=== PATIENT | male | born 1965 | race Caucasian/White ===

== ENCOUNTER 2018-12-29 06:09 | Emergency (ER) | payer SELFPAY ==
[2018-12-29] MEDS ORDERED: IPRATROPIUM/ALBUTEROL 0.5-2.5 MG/3 ML AMPUL NEB ONE (07:19)
--- NOTE | 2018-12-29 07:59 | RADIOLOGY REPORT (SQ) ---
EXAM DESCRIPTION: XR CHEST 2 VIEWS COMPLETED DATE/TME: 12/29/2018 07:19 CLINICAL HISTORY: sob COMPARISON: 12/03/2014 FINDINGS: Frontal and lateral views of the chest. Tortuosity of thoracic aorta. Heart is not enlarged. No consolidation, pneumothorax, or pleural effusion. No acute osseous abnormalities. Upper abdominal soft tissues are unremarkable. IMPRESSION: 1. No acute pulmonary process identified.
[2018-12-29 08:04] LABS: A TYPE INFLUENZA AG NEGATIVE (NEGATIVE); B INFLUENZA AG NEGATIVE (NEGATIVE)
[2018-12-29] MEDS ORDERED: ALBUTEROL SULFATE HFA (90 MCG/PUFF) 8 GM MDI (1 MDI/ER DISP) IH ONE (08:22)
[2018-12-29] MEDS ORDERED: AZITHROMYCIN 250 MG TABLET PO ONE (08:22)
[2018-12-29] MEDS ORDERED: PREDNISONE 20 MG TABLET PO ONE (08:22)
[2018-12-29 09:00] VITALS: BP 143/86
--- NOTE | 2018-12-29 09:01 | ER Document Report ---
ED General - General Chief Complaint: Cold Symptoms Stated Complaint: DIFFICULTY BREATHING Time Seen by Provider: 12/29/18 07:17 TRAVEL OUTSIDE OF THE [place] IN LAST 30 DAYS: No - HPI Patient complains to provider of: Cough shortness of breath Notes: Patient coming in for cough shortness of breath patient is a history of smoking patient states symptoms ongoing for approximately 1 week to 2 weeks. Patient states difficulty in getting any sputum production. Patient denies chills but states that he felt feverish at night prior. Denies any nausea vomiting chest pain abdominal pain. Patient denies any recent travel states no flu shot this year. Patient otherwise resting comfortably upon my evaluation. - Related Data Allergies/Adverse Reactions: No Known Allergies Allergy (Verified 12/29/18 06:56) Past Medical History - Social History Smoking Status: Current Every Day Smoker Frequency of alcohol use: None Drug Abuse: Marijuana Family History: Reviewed & Not Pertinent Patient has suicidal ideation: No Patient has homicidal ideation: No Renal/ Medical History: Denies: Hx Peritoneal Dialysis Skin Medical History: Reports Hx MRSA Past Surgical History: Reports: Hx Testicular Surgery - Immunizations Hx Diphtheria, Pertussis, Tetanus Vaccination: Yes Review of Systems - Review of Systems Constitutional: No symptoms reported EENT: No symptoms reported Cardiovascular: No symptoms reported Respiratory: Short of breath, Wheezing Gastrointestinal: No symptoms reported Genitourinary: No symptoms reported Male Genitourinary: No symptoms reported Musculoskeletal: No symptoms reported Skin: No symptoms reported Hematologic/Lymphatic: No symptoms reported Neurological/Psychological: No symptoms reported -: Yes All other systems reviewed and negative Physical Exam - Vital signs Vitals: Temp Pulse Resp BP Pulse Ox 97.8 F 77 20 162/92 H 97 12/29/18 06:10 12/29/18 06:10 12/29/18 06:10 12/29/18 06:10 12/29/18 06:10 Interpretation: Normal - General General appearance: Appears well, Alert - HEENT Head: Normocephalic, Atraumatic Eyes: Normal Pupils: PERRL - Respiratory Respiratory status: No respiratory distress Chest status: Nontender Breath sounds: Wheezing Chest palpation: Normal - Cardiovascular Rhythm: Regular Heart sounds: Normal auscultation Murmur: No - Abdominal Inspection: Normal Distension: No distension Bowel sounds: Normal Tenderness: Nontender Organomegaly: No organomegaly - Back Back: Normal, Nontender - Extremities General upper extremity: Normal inspection, Nontender, Normal color, Normal ROM, Normal temperature General lower extremity: Normal inspection, Nontender, Normal color, Normal ROM, Normal temperature, Normal weight bearing. No: Josue's sign - Neurological Neuro grossly intact: Yes Cognition: Normal Orientation: AAOx4 [place] Coma Scale Eye Opening: Spontaneous [place] Coma Scale Verbal: Oriented [place] Coma Scale Motor: Obeys Commands [place] Coma Scale Total: 15 Speech: Normal Motor strength normal: LUE, RUE, LLE, RLE Sensory: Normal - Psychological Associated symptoms: Normal affect, Normal mood - Skin Skin Temperature: Warm Skin Moisture: Dry Skin Color: Normal Course - Re-evaluation Re-evalutation: 12/29/18 14:44 Possibly underlying bronchitis we will go ahead and start the patient on steroids azithromycin and bronchodilator therapy will have the patient follow-up with her primary care physician return to ER symptoms worsen. - Vital Signs Vital signs: Temp Pulse Resp BP Pulse Ox 97.9 F 70 18 143/86 H 99 12/29/18 08:59 12/29/18 08:59 12/29/18 08:59 12/29/18 08:59 12/29/18 08:59 Discharge - Discharge Clinical Impression: Bronchitis Condition: Good Disposition: HOME, SELF-CARE Instructions: Azithromycin (OM), Bronchitis With Bronchospasm (Wheezing) (OM) Additional Instructions: Your evaluation is consistent with bronchitis please make sure that she stop smoking. Please take the medications as prescribed. Return to ER symptoms worsen. Will recommend drinking plenty of fluids if you are going to take [id number] next Mucinex. I would also recommend that he try [id number] natural honey mixed in your favorite drink to help with cough suppression Prescriptions: Azithromycin [Zithromax] 250 mg PO DAILY #4 tablet Prednisone [Deltasone 20 mg Tablet] 3 tab PO DAILY 4 Days tablet Forms: Return to Work
== END 2018-12-29 09:04 | disposition home or self-care (01) ==
LOC: ER 06:09
DX: J40 Bronchitis, not specified as acute or chronic (principal); R05 Cough; R06.02 Shortness of breath; F17.200 Nicotine dependence, unspecified, uncomplicated; F12.10 Cannabis abuse, uncomplicated; R06.2 Wheezing
CPT/HCPCS: 94640; 99283; 87804; 71046; J7512; J3490; J7620